=== PATIENT | female | born 1950 | race Caucasian/White ===

== ENCOUNTER 2018-01-13 11:20 | Outpatient (CLI) | payer BC ==
[2018-01-13 11:48] LABS: Cardiac Risk 4.5 (Less than 4.5)
--- NOTE | 2018-01-13 12:11 | RAD ---
CHEST ONE VIEW: History: Dyspnea. Comparison: 04-20-10 FINDINGS: Cardiac silhouette is magnified by projection. Pulmonary vasculature is unremarkable. Linear opacity at the left base has the appearance of scarring. No lobar consolidation or evidence of pneumothorax. IMPRESSION: No active cardiopulmonary abnormalities are demonstrated. POS: [facility]
== END 2018-01-13 11:21 | disposition home or self-care (01) ==
LOC: SCSRAD 11:20
PROVIDERS: ATTEND Physician Assistant
DX: R06.02 Shortness of breath (principal); E78.2 Mixed hyperlipidemia
CPT/HCPCS: 36415; 71045; 80061; 83880; 85379

== ENCOUNTER 2019-01-10 10:17 | Outpatient (CLI) | payer BC ==
--- NOTE | 2019-01-10 12:54 | RAD ---
CHEST 2 VIEWS: HISTORY: Productive cough, sore throat, and ear pain for 6 days. Bronchitis. FINDINGS: Heart size is within normal limits. The lungs are clear. No confluent pneumonia, overt edema, or ot her acute process. IMPRESSION: No acute intrathoracic disease. No evidence for pneumonia. Atherosclerosis of the aorta. POS: [facility]
== END 2019-01-10 10:18 | disposition home or self-care (01) ==
LOC: SCSRAD 10:17
PROVIDERS: ATTEND Nurse Practitioner Family
DX: J40 Bronchitis, not specified as acute or chronic (principal); I70.0 Atherosclerosis of aorta
CPT/HCPCS: 71046

== ENCOUNTER 2019-12-20 08:06 | Outpatient (CLI) | payer BC ==
--- NOTE | 2019-12-20 09:43 | RAD ---
CHEST 2 VIEWS: COMPARISON: 04/27/2019. HISTORY: Dyspnea. FINDINGS: Atherosclerosis of the aorta. Normal cardiac silhouette. The pulmonary vessels and hilum are normal . Costophrenic angles are clear. Hyperinflation, without consolidation or mass. No pneumothorax or osseous abnormalities. Scarring in the left lower lobe is noted. IMPRESSION: 1. Atherosclerosis. 2. No acute cardiopulmonary process. POS: [facility]
== END 2019-12-20 08:07 | disposition home or self-care (01) ==
LOC: RAD 08:06
PROVIDERS: ATTEND Internal Medicine Critical Care Medicine
DX: R06.00 Dyspnea, unspecified (principal); I70.90 Unspecified atherosclerosis
CPT/HCPCS: 71046

== ENCOUNTER 2023-12-17 14:08 | Outpatient (CLI) | payer BC | END 2023-12-17 14:09 | disposition home or self-care (01) | LOC: ULT 14:08 | PROVIDERS: ATTEND Family Medicine | DX: M79.604 Pain in right leg (principal); R60.0 Localized edema ==